=== PATIENT | male | born 1995 | race Two or more races ===

== ENCOUNTER 2016-03-19 15:14 | Emergency (ER) | payer OTHER ==
[2016-03-19 15:19] VITALS: RESP 16
[2016-03-19] MEDS ORDERED: NS 1,000 ML IV ONE (15:33)
[2016-03-19] MEDS ORDERED: ONDANSETRON 4 MG/2 ML VIAL IVP ONE (15:33)
--- NOTE | 2016-03-19 15:33 | EDPHY ---
H & P Stated Complaint: awakened today with generalized abd distress/vomiting Time Seen by Provider: 03/19/16 15:25 HPI/ROS: CHIEF COMPLAINT: Nausea vomiting HISTORY OF PRESENT ILLNESS: 20-year-old male no history of chronic abdominal pathology complaining of nausea vomiting generalized abdominal discomfort and cramping since this morning. No testicular pain. No back or flank pain. No diarrhea. No international travel. No known sick contacts. No fever or chills. No flu-like symptoms. No URI symptoms. No melena or hematochezia. No hematemesis. No urinary complaints. PRIMARY CARE PROVIDER: [facility] REVIEW OF SYSTEMS: A ten point review of systems was performed and is negative with the exception of the items mentioned in the HPI PAST MEDICAL & SURGICAL HISTORY: No pertinent medical or surgical history SOCIAL HISTORY: no alcohol use FAMILY HISTORY: No pertinent family history PHYSICAL EXAM (Prior to examination, patient consented to physical exam, hands were washed and my usual and customary physical exam procedures followed) 1) GENERAL: Well-developed, well-nourished, alert and oriented. Appears to be in no acute distress. 2) HEAD: Normocephalic, atraumatic 3) HEENT: Pupils equal, round, reactive to light bilaterally. Sclera anicteric. Nasopharynx, oropharynx, clear, no lesions. moist mucous membranes 4) NECK: Full range of motion, no meningeal signs. 5) LUNGS: Clear auscultation bilaterally, no wheezes, no rhonchi, no retractions. 6) HEART: Regular rate and rhythm, no murmur, no heave, no gallop. 7) ABDOMEN: No guarding, no rebound, no focal tenderness, negative McBurney's, negative Welsh's, negative Rovsing's, negative peritoneal sign, I am unable to elicit any pain. Upon examining his abdomen he is laughing stating that he is ticklish. 8) MUSCULOSKELETAL: Moving all extremities, no focal areas of tenderness, no obvious trauma. No peripheral edema or discoloration. 9) BACK: No CVA tenderness 10) SKIN: No rash, no petechiae. 11) Psychiatric: Patient is oriented X 3, there is no agitation. 12) : Normal male external genitalia, bilateral cremasteric reflex is present. No testicular asymmetry, swelling, high-riding. DIFFERENTIAL DIAGNOSIS: My differential diagnosis includes, but is not limited to, acute appendicitis, acute cholecystitis, bowel obstruction, acute pancreatitis, testicular torsion, gastritis and urinary tract infection. The patient understands that this diagnosis is provisional and can never be 100% accurate. This is a partial list of diagnoses considered. These considerations are based on history, physical exam, past history and reassessment. - Personal History Current Tetanus/Diphtheria Vaccine: No Tetanus Vaccine Date: <10 years - Medical/Surgical History Hx Asthma: No Hx Chronic Respiratory Disease: No Hx Diabetes: No Hx Cardiac Disease: No Hx Renal Disease: No Hx Cirrhosis: No Hx Alcoholism: No Hx HIV/AIDS: No Hx Splenectomy or Spleen Trauma: No Other PMH: EYE SURGERY - Social History Smoking Status: Never smoked Constitutional: Initial Vital Signs Temperature (C) 37 C 03/19/16 15:17 Heart Rate 94 03/19/16 15:17 Respiratory Rate 16 03/19/16 15:17 Blood Pressure 120/78 03/19/16 15:17 O2 Sat (%) 97 03/19/16 15:17 O2 Delivery Mode Room Air Allergies/Adverse Reactions: No Known Allergies Allergy (Verified 03/19/16 15:16) Home Medications: Medication Instructions Recorded Ondansetron Odt [Zofran Odt] 4 mg PO Q4PRN PRN #10 tab 03/19/16 Medical Decision Making ED Course/Re-evaluation: The patient has been re-evaluated with serial exams. His abdomen is reexamined and remained soft no guarding or rebound no McBurney's point pain. I am unable to elicit any abdominal pain. I think that acute surgical abdominal or pathology is less than likely in this patient at this time. Doubt acute appendicitis. He has been observed tolerating oral intake. I do not think that imaging studies currently indicated. I think he can be discharged with with my strict usual and customary abdominal discharge precautions and instructions. He feels comfortable being discharged. All questions and concerns addressed by myself - Data Points Laboratory Results: Laboratory Results 03/19/16 15:56 03/19/16 15:56 WBC 7.01 10^3/uL (3.80-9.50) RBC 5.90 10^6/uL (4.40-6.38) Hgb 17.7 H g/dL (13.7-17.5) Hct 51.7 H % (40.0-51.0) MCV 87.6 fL (81.5-99.8) MCH 30.0 pg (27.9-34.1) MCHC 34.2 g/dL (32.4-36.7) RDW 12.6 % (11.5-15.2) Plt Count 186 10^3/uL (150-400) MPV 9.9 fL (8.7-11.7) Neut % (Auto) 84.2 H % (39.3-74.2) Lymph % (Auto) 6.6 L % (15.0-45.0) [place] % (Auto) 8.0 % (4.5-13.0) Eos % (Auto) 0.1 L % (0.6-7.6) Baso % (Auto) 0.1 L % (0.3-1.7) Nucleat RBC Rel Count 0.0 % (0.0-0.2) Absolute Neuts (auto) 5.90 10^3/uL (1.70-6.50) Absolute Lymphs (auto) 0.46 L 10^3/uL (1.00-3.00) Absolute Monos (auto) 0.56 10^3/uL (0.30-0.80) Absolute Eos (auto) 0.01 L 10^3/uL (0.03-0.40) Absolute Basos (auto) 0.01 L 10^3/uL (0.02-0.10) Absolute Nucleated RBC 0.00 10^3/uL (0-0.01) Immature Gran % 1.0 % (0.0-1.1) Immature Gran # 0.07 10^3/uL (0.00-0.10) Sodium Pending Potassium Pending Chloride Pending Carbon Dioxide Pending Anion Gap Pending BUN Pending Creatinine Pending Estimated GFR Pending Glucose Pending Calcium Pending Total Bilirubin Pending Conjugated Bilirubin Pending Unconjugated Bilirubin Pending AST Pending ALT Pending Alkaline Phosphatase Pending Total Protein Pending Albumin Pending Lipase Pending Medications Given: Discontinued Medications Sodium Chloride (Ns) 1,000 mls @ 0 mls/hr IV ONCE ONE PRN Reason: Wide Open Stop: 03/19/16 15:34 Last Admin: 03/19/16 16:02 Dose: 1,000 mls Ondansetron HCl (Zofran) 4 mg IVP EDNOW ONE Stop: 03/19/16 15:34 Last Admin: 03/19/16 16:03 Dose: 4 mg Departure - Departure Disposition: Home, Routine, Self-Care Clinical Impression: Nausea and vomiting Qualifiers: Vomiting type: unspecified Vomiting Intractability: non-intractable Qualifier Code: (R11.2) Nausea with vomiting, unspecified Condition: Good Instructions: Acute Nausea and Vomiting (ED) Additional Instructions: Seek immediate medical attention if you develop new or worsening symptoms, if you develop fevers, chills, inability to tolerate oral intake or any other symptoms that concerns you. Referrals: [facility] [Outside] - 1 day without fail Stand Alone Forms: School Excuse Prescriptions: Ondansetron Odt [Zofran Odt] 4 mg PO Q4PRN PRN #10 tab PRN Reason: Nausea
[2016-03-19 16:02] LABS: HEMATOCRIT 51.7 % (40.0-51.0); HEMOGLOBIN 17.7 g/dL (13.7-17.5); MEAN CELL HEMOGLOBIN CONCENTR. 34.2 g/dL (32.4-36.7); MEAN CELL VOLUME 87.6 fL (81.5-99.8); MEAN PLATELET VOLUME 9.9 fL (8.7-11.7); PLATELET COUNT 186 10^3/uL (150-400); RED CELL DISTRIBUTION WIDTH 12.6 % (11.5-15.2)
[2016-03-19 16:03] LABS: ABSOLUTE IMMATURE GRANULOCYTES 0.07 10^3/uL (0.00-0.10); ADD DIFF? NO; ADD MORPH? NO; ADD SCAN? NO; ATYPICAL LYMPHOCYTE FLAG 10 (0-99); FRAGMENT RBC FLAG 0 (0-99); LEFT SHIFT FLG 10 (0-99); LIPEMIA HEMOLYSIS FLAG 90 (0-99); PLATELET CLUMPS FLAG 0 (0-99)
[2016-03-19 16:37] LABS: ALANINE AMINOTRANSFERASE 45 IU/L (21-72); ALBUMIN 4.3 g/dL (3.5-5.0); ALKALINE PHOSPHATASE 65 IU/L (38-126); ANION GAP 15 mEq/L (8-16); ASPARTATE AMINOTRANSFERASE 27 IU/L (17-59); BILIRUBIN,TOTAL 0.8 mg/dL (0.1-1.4); BILIRUBIN-CONJUGATED 0.2 mg/dL (0.0-0.5); BILIRUBIN-UNCONJUGATED 0.6 mg/dL (0.0-1.1); CALCIUM 9.2 mg/dL (8.5-10.4); CARBON DIOXIDE 26 mEq/l (22-31); CHLORIDE 100 mEq/L (97-110); GLOMERULAR FILTRATION RATE > 60; GLUCOSE 119 mg/dL (70-100); POTASSIUM 4.2 mEq/L (3.5-5.2); SODIUM 141 mEq/L (134-144); TOTAL PROTEIN 7.6 g/dL (6.3-8.2)
[2016-03-19 17:05] VITALS: BP 112/68; PULSE 102; TEMP 97.5; O2SAT 98
== END 2016-03-19 17:05 | disposition home or self-care (01) ==
DX: R11.2 Nausea with vomiting, unspecified (principal)
CPT/HCPCS: 96374; J2405